=== PATIENT | female | born 2000 | race Two or more races ===

== ENCOUNTER 2020-07-21 10:21 | Emergency (ER) | payer OTHER ==
[~2020-07-21] VITALS: Ht 152.4 cm; Wt 59.7 kg
--- NOTE | 2020-07-21 11:15 | REP ---
INDICATION: abdominal pain/constipation. COMPARISON: None. TECHNIQUE: Two views of the abdomen and pelvis FINDINGS: Bowel gas pattern is nonspecific. No organomegaly. No abnormal calcifications. No foreign body. Skeletal structures intact. IMPRESSION: Normal, nonspecific abdominal radiographs. <Electronically signed by Alpesh Rinaldi > 07/21/20 [id number]
--- NOTE | 2020-07-21 13:09 | REP ---
INDICATION: lower abdominal pain COMPARISON: None. TECHNIQUE: Transabdominal pelvic ultrasound with color Doppler evaluation of the ovaries. FINDINGS: Bladder is unremarkable and measures 6.9 x 1.6 x 4.9 cm. Normal anteverted uterus measures 7.0 x 3.3 x 4.5 cm. The endometrial complex measures 5.5 mm thickness. No discrete uterine or endometrial abnormalities are appreciated. Bilateral ovaries are normal in appearance and vascularity without evidence for torsion. Right ovary measures 3.6 x 2.1 x 2.1 cm; R I = 0.65. Left ovary measures 2.9 x 2.5 x 2.2 cm; R I = 0.61. No pelvic fluid or adnexal mass lesion IMPRESSION: Normal pelvic ultrasound. <Electronically signed by Alpesh Rinaldi > 07/21/20 [id number]
[2020-07-21] MEDS ORDERED: CEPH500T PO (13:18)
[2020-07-21] MEDS ORDERED: PYRI1TAB5 PO (13:20)
[2020-07-21] MEDS ORDERED: MM S100C PO (13:21)
[2020-07-21 13:27] VITALS: BP 116/56
== END 2020-07-21 13:32 | disposition home or self-care (01) ==
LOC: M ED 10:21
DX: N39.0 Urinary tract infection, site not specified (principal); R10.84 Generalized abdominal pain